=== PATIENT | male | born 1945 | race Caucasian/White ===

== ENCOUNTER 2024-05-27 14:19 | Outpatient (CLI) | payer OTHER | END 2024-05-27 14:20 | disposition home or self-care (01) | LOC: CSHRAD 14:19 | PROVIDERS: ATTEND Specialist | DX: R07.1 Chest pain on breathing (principal) | CPT/HCPCS: 71046 ==

== ENCOUNTER 2025-09-13 05:21 | Emergency (ER) | payer OTHER | END 2025-09-13 06:45 | disposition home or self-care (01) | LOC: CSHERS 05:21 | DX: Z45.018 Encounter for adjustment and management of other part of cardiac pacemaker (principal); I10 Essential (primary) hypertension; Z95.5 Presence of coronary angioplasty implant and graft | CPT/HCPCS: 93005; 99284 ==